=== PATIENT | female | born 1955 | race Two or more races ===

== ENCOUNTER 2016-08-23 08:15 | Emergency (ER) | payer OTHER ==
[2016-08-23 08:34] VITALS: BP 128/69; PULSE 89; TEMP 99; BMI 34.2
--- NOTE | 2016-08-23 08:48 | PDOC ---
*Physical Exam - Vital Signs Last Vital Signs Temp Pulse Resp BP Pulse Ox 99.0 F 89 18 128/69 100 08/23/16 08:18 08/23/16 08:18 08/23/16 08:18 08/23/16 08:18 08/23/16 08:18 - Physical Exam Comments: 08/23/16 08:48 Pt seen by the Advanced Practice Provider under my direct supervision Pt interviewed and examined Ancillary studies reviewed I agree with plan as outlined by the Advanced Practice Provider ED Treatment Course - LABORATORY CBC & Chemistry Diagram: 08/23/16 09:15 08/23/16 09:15 *DC/Admit/Observation/Transfer Diagnosis at time of Disposition: Abnormal laboratory test - Discharge Dispostion Disposition: HOME Condition at time of disposition: Good - Referrals Referrals: Jing Shaw MD [Primary Care Provider] - - Patient Instructions Printed Discharge Instructions: Sodium Additional Instructions: Patient's labs will be attached with her discharge. Please had patient follow up with Dr. Shaw or Dr. Pavon at the facility. May return to the ED at any given time for concerning issues.
[2016-08-23 09:44] LABS: BASOPHIL 0.5 % (0-2.0); MCH 30.8 pg (25.7-33.7); MCHC 33.5 g/dl (32.0-36.0); MEAN CELL VOLUME 91.9 fl (80-96); MEAN PLT VOLUME 8.5 fl (7.5-11.1); NEUTROPHILS 43.2 % (42.8-82.8); PLATELET COUNT 185 K/MM3 (134-434); RDW 14.6 % (11.6-15.6); WHITE BLOOD COUNT 6.8 K/mm3 (4.0-10.0)
[2016-08-23 09:59] LABS: ALBUMIN 3.1 g/dl (3.4-5.0); ANION GAP 7 (8-16); CALCIUM 8.5 mg/dL (8.5-10.1); CO2 26 mmol/L (21-32); CREATININE 0.5 mg/dL (0.55-1.02); GLUCOSE,RANDOM 209 mg/dL (74-106); SGPT/ALT 82 U/L (12-78)
[2016-08-23 10:01] LABS: ALK PHOS 151 U/L (45-117); BILIRUBIN,TOTAL 0.4 mg/dL (0.2-1.0); TOT PROT 6.9 g/dl (6.4-8.2)
[2016-08-23 10:03] LABS: SGOT/AST 66 U/L (15-37)
--- NOTE | 2016-08-23 10:24 | PDOC ---
History of Present Illness - General Chief Complaint: Revisit, Lab Variance Stated Complaint: ABNORMAL LABS Time Seen by Provider: 08/23/16 08:19 History Source: Patient Exam Limitations: No Limitations - History of Present Illness Initial Comments: 08/23/16 08:24 61-year-old female sent over from [facility] for evaluation of hyponatremia. As per chart, pt had a sodium of 170 and was to receive IV fluids but nursing staff decided to send patient to the ER for further evaluation. Patient had normal vital signs upon arrival and appears comfortable in no distress. Patient with history of schizophrenia, blindness, dementia, diabetes, constipation, hypertension, anemia, RLS. Timing/Duration: unsure Associated Symptoms: reports: denies symptoms Past History - Past Medical History Allergies/Adverse Reactions: Allergies Allergy/AdvReac Type Severity Reaction Status Date / Time No Known Allergies Allergy Verified 08/23/16 08:34 Anemia: Yes Dementia: Yes Diabetes: Yes GI Disorders: Yes (constipation) HTN: Yes Psychiatric Problems: Yes (Schizoaffective,) Other medical history: osteoporosis,restless leg syndrome, blind asa eye - Psycho/Social/Smoking Cessation Hx Anxiety: No Suicidal Ideation: No Smoking History: Unknown if ever smoked Have you smoked in the past 12 months: No Information on smoking cessation initiated: No Hx Alcohol Use: No Drug/Substance Use Hx: No Substance Use Type: None Patient Lives Alone: No Lives with[facility]in: [facility] Review of Systems - Review of Systems Able to Perform ROS?: Yes Constitutional: No: Symptoms Reported Respiratory: No: Symptoms reported Cardiac (ROS): No: Symptoms Reported ABD/GI: No: Symptoms Reported Musculoskeletal: No: Symptoms Reported Integumentary: No: Symptoms Reported Neurological: No: Symptoms reported *Physical Exam - Vital Signs Last Vital Signs Temp Pulse Resp BP Pulse Ox 99.0 F 89 18 128/69 100 08/23/16 08:18 08/23/16 08:18 08/23/16 08:18 08/23/16 08:18 08/23/16 08:18 - Physical Exam General Appearance: Yes: Nourished, Appropriately Dressed. No: Apparent Distress HEENT: negative: Pale Conjunctivae Neck: positive: Supple Respiratory/Chest: positive: Lungs Clear, Normal Breath Sounds. negative: Respiratory Distress, Accessory Muscle Use Cardiovascular: positive: Regular Rhythm, Regular Rate. negative: Murmur Gastrointestinal/Abdominal: positive: Soft. negative: Tenderness Extremity: negative: Pedal Edema Integumentary: positive: Normal Color, Dry, Warm Neurologic: positive: Motor Strength 5/5 (moving all extremeties actively) ED Treatment Course - LABORATORY CBC & Chemistry Diagram: 08/23/16 09:15 08/23/16 09:15 Medical Decision Making - Medical Decision Making 08/23/16 08:26 Patient here for evaluation of hypernatremia. As per nurse practitioner who I spoke with she stated patient was to receive IV fluids this morning but instead was sent here for further evaluation. As per nurse practitioner patient had normal sodium of 144 August 01 and yesterday was 170. Patient ordered for labs, EKG, urine IV access, and rn cardiac rehab. 08/23/16 10:29 Laboratory Tests 08/23/16 08/23/16 09:15 09:15 WBC 6.8 Hgb 14.6 Hct 43.7 Neutrophils % 43.2 Lymphocytes % 44.0 H Monocytes % 11.3 H Sodium 138 Potassium 5.2 H Chloride 105 Carbon Dioxide 26 Anion Gap 7 L BUN 15 Creatinine 0.5 L Creat Clearance w eGFR > 60 Random Glucose 209 H AST 66 H ALT 82 H Alkaline Phosphatase 151 H Albumin 3.1 L [facility] to [facility] *DC/Admit/Observation/Transfer Diagnosis at time of Disposition: Abnormal laboratory test result - Discharge Dispostion Disposition: HOME Condition at time of disposition: Good - Referrals Referrals: Jing Shaw MD [Primary Care Provider] - - Patient Instructions Printed Discharge Instructions: Sodium Additional Instructions: Patient's labs will be attached with her discharge. Please had patient follow up with Dr. Shaw or Dr. Pavon at the facility. May return to the ED at any given time for concerning issues.
== END 2016-08-23 12:32 | disposition home or self-care (01) ==
LOC: JER 08:15
DX: R79.9 Abnormal finding of blood chemistry, unspecified (principal); I10 Essential (primary) hypertension; F25.9 Schizoaffective disorder, unspecified; K59.00 Constipation, unspecified; E11.9 Type 2 diabetes mellitus without complications; F03.90 Unspecified dementia, unspecified severity, without behavioral disturbance, psychotic disturbance, mood disturbance, and anxiety
CPT/HCPCS: 36415; 80053; 85025; 99282-25